=== PATIENT | male | born 1955 | race Caucasian/White ===

== ENCOUNTER 2018-07-25 06:49 | Day surgery (SDC) | payer BC ==
[2018-07-25] VITALS (12 sets, daily range): BP systolic 119–136; BP diastolic 66–91; PULSE 51–59; TEMP 98–98.2
[~2018-07-25] VITALS: Ht 170.3 cm; Wt 92.0 kg
[2018-07-25 07:18] LABS: HEMATOCRIT 43.4 % (42.0-52.0); MEAN CELL VOLUME 95 fl (80.0-100.0); MEAN CORPUSCULAR HEMOGLOBIN 33 pg (27.0-31.0); MEAN CORPUSCULAR HGB CONC 35 g/dl (33.0-37.0); PLATELET COUNT 84 K/mm3 (130-400); RED BLOOD COUNT 4.58 M/mm3 (4.20-5.60); REDCELL DISTRIBUTION WIDTH-CV 13.8 % (11.5-14.5)
[2018-07-25] MEDS ORDERED: NORVASC 5MG5 MG/TAB PO (07:22)
[2018-07-25] MEDS ORDERED: GLUCOPHAGE1000 MG PO (07:23)
[2018-07-25] MEDS ORDERED: ELIQUIS 5MG PO (07:24)
[2018-07-25] MEDS ORDERED: CELEXA 20MG20 MG/TAB PO (07:25)
[2018-07-25] MEDS ORDERED: TOPROL XL 50MG50 MG PO (07:26)
[2018-07-25] MEDS ORDERED: PACERONE100 MG PO (07:29)
[2018-07-25] MEDS ORDERED: LIPITOR 80MG80 MG PO (07:30)
[2018-07-25 07:51] LABS: PROTHROMBIN TIME 11.6 SECONDS (9.7-12.8)
[2018-07-25 07:58] LABS: CALCIUM 9.5 mg/dL (8.4-10.2); CREATININE, serum 0.88 mg/dL (0.66-1.25); POTASSIUM 4.2 mmol/L (3.4-5.0)
== END 2018-07-25 15:31 | disposition home or self-care (01) ==
LOC: COL.CAR 06:49
PROVIDERS: Internal Medicine Cardiovascular Disease
DX: I25.10 Atherosclerotic heart disease of native coronary artery without angina pectoris (principal); R06.00 Dyspnea, unspecified; I35.9 Nonrheumatic aortic valve disorder, unspecified; I48.0 Paroxysmal atrial fibrillation; Z95.5 Presence of coronary angioplasty implant and graft; Z95.2 Presence of prosthetic heart valve; I10 Essential (primary) hypertension; E11.9 Type 2 diabetes mellitus without complications; E78.5 Hyperlipidemia, unspecified; F17.210 Nicotine dependence, cigarettes, uncomplicated; Z86.718 Personal history of other venous thrombosis and embolism; Z86.73 Personal history of transient ischemic attack (TIA), and cerebral infarction without residual deficits; Z79.01 Long term (current) use of anticoagulants; Z79.899 Other long term (current) drug therapy
CPT/HCPCS: J1644; J2250; J3010; Q9967